=== PATIENT | male | born 1975 | race Caucasian/White ===

== ENCOUNTER 2019-09-24 12:53 | Emergency (ER) | payer OTHER ==
[~2019-09-24] VITALS: Ht 177.8 cm; Wt 88.5 kg
[~2019-09-24 12:53] MED LIST: DICLOFENAC POTA50 MG PO; NABUMETONE500 MG PO; NORFLEX100MG PO; PERCOCET 5/3251 TAB PO
== END 2019-09-24 16:25 | disposition home or self-care (01) ==
LOC: ER 12:53
DX: S60.011A Contusion of right thumb without damage to nail, initial encounter (principal); S00.83XA Contusion of other part of head, initial encounter; S20.212A Contusion of left front wall of thorax, initial encounter; V19.88XA Pedal cyclist (driver) (passenger) injured in other specified transport accidents, initial encounter; Y93.89 Activity, other specified; Y92.413 State road as the place of occurrence of the external cause; Y99.8 Other external cause status

== ENCOUNTER 2023-03-26 16:18 | Emergency (ER) | payer OTHER ==
[~2023-03-26] VITALS: Ht 177.8 cm; Wt 97.5 kg
[2023-03-26] MEDS ORDERED: [UNRECOGNIZED DRUG - OTHER] (17:05)
[2023-03-26] MEDS ORDERED: HORIZANT300 MG (17:05)
== END 2023-03-26 20:08 | disposition home or self-care (01) ==
LOC: ER 16:18
DX: M62.830 Muscle spasm of back (principal)